=== PATIENT | female | born 1975 | race Caucasian/White ===

== ENCOUNTER 2017-01-25 18:08 | Emergency (ER) | payer OTHER ==
--- NOTE | 2017-01-25 19:43 | Emergency Department Record ---
History of Present Illness - General Chief complaint: Eye Problem Stated complaint: RT EYE INJURY Time Seen by Provider: 01/25/17 19:36 Source: Patient Mode of Arrival: Ambulatory Limitations: No limitations - History of Present Illness Initial comments: 41 yo female presents to ED with a CC of injury to the right eye when her accidentally scratched her right eye. Patient reports pain and mild blurred vision on examination. Patient denies other injury, denies health problems at her baseline. chief complaint: Eye pain Onset/Timin -: Hour(s) Onset Description: Sudden Location: Right eye Place: Home If Injury: Direct trauma Eye Symptoms: Burning, Blurry vision, Pain Severity: Mild Severity scale (1-10): 8 Consistency: Constant Associated Symptoms: None Treatments Prior to Arrival: None - Related Data Visual acuity (L) = 20/: 20 Visual acuity (R) = 20/: 40 With correction: No Hx Tetanus Toxoid Vaccination: (unknown) Patient Tetanus UTD (within 5 yrs): (unknwn) Home Medications Medication Instructions Recorded Confirmed Last Taken No Home Med [NO HOME MEDS] 08/10/15 08/10/15 Unknown Allergies Allergy/AdvReac Type Severity Reaction Status Date / Time Sulfa (Sulfonamide Allergy JOINT ACHES Verified 08/10/15 20:30 Antibiotics) Travel Screening - Travel/Exposure Within Last 30 Days Have you traveled within the last 30 days?: No - Travel/Exposure Within Last Year Have you traveled outside the [place] in the last year?: No - Additonal Travel Details Have you been exposed to anyone with a communicable illness?: No - Travel Symptoms Symptom Screening: None Review of Systems Constitutional: Denies: Chills, Fever, Malaise, Night sweats Eyes: Reports: Eye pain. Denies: Eye discharge, Photophobia ENT: Denies: Congestion, Ear pain, Epistaxis Respiratory: Denies: Cough, Dyspnea Cardiovascular: Denies: Chest pain, Dyspnea on exertion Endocrine: Denies: Fatigue, Heat or cold intolerance Gastrointestinal: Denies: Constipation, Nausea, Vomiting Genitourinary: Denies: Dysuria, Frequency, Hematuria, Incontinence Musculoskeletal: Denies: Arthralgia, Back pain, Gout, Joint swelling Skin: Denies: Bruising, Change in color Neurological: Denies: Abnormal gait, Confusion, Headache Psychiatric: Denies: Anxiety Hematological/Lymphatic: Denies: Anemia, Blood Clots Past Medical History - SOCIAL HISTORY Smoking Status: Current every day smoker Alcohol Use: None Drug Use: None - 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 history: Reports: endometriosis - RESPIRATORY Hx Respiratory Disorders: No - CARDIOVASCULAR Hx Cardio Disorders: No - NEURO Hx Neuro Disorders: No - GI Hx GI Disorders: No - Hx Genitourinary Disorders: Yes Hx Kidney Stones: Yes - ENDOCRINE Hx Endocrine Disorders: No - MUSCULOSKELETAL Hx Musculoskeletal Disorders: No - PSYCH Hx Psych Problems: Yes Hx Anxiety: Yes Hx Depression: Yes - HEMATOLOGY/ONCOLOGY Hx Hematology/Oncology Disorders: No Family Medical History Any Significant Family History?: No Physical Exam - General General Appearance: Alert, Oriented x3, Cooperative, Mild distress Limitations: No limitations - Head Head exam: Atraumatic, Normocephalic, Normal inspection Head exam detail: negative: Abrasion, Contusion, Vela's sign, General tenderness, Hematoma, Laceration - Eye Eye exam: Other (On Wood's lamp examination, patient has a small flap-abrasion with negative Alberto's sign, no FBs identified on examination). negative: Conjunctival injection, Periorbital swelling, Periorbital tenderness, Scleral icterus With correction: No - ENT Ear exam: negative: Auricular hematoma, Auricular trauma Nasal Exam: negative: Active bleeding, Discharge, Dried blood, Foreign body Mouth exam: negative: Drooling, Laceration, Muffled voice, Tongue elevation - Neck Neck exam: Normal inspection. negative: Meningismus, Tenderness - Respiratory Respiratory exam: Normal lung sounds bilaterally. negative: Respiratory distress, Rhonchi, Stridor, Wheezes - Cardiovascular Cardiovascular Exam: Regular rate, Normal rhythm, Normal heart sounds - GI/Abdominal GI/Abdominal exam: Soft. negative: Organomegaly, Rebound, Rigid, Tenderness - Rectal Rectal exam: Deferred - exam: Deferred - Extremities Extremities exam: Normal inspection. negative: Calf tenderness, Pedal edema, Tenderness - Back Back exam: Denies: CVA tenderness (R), CVA tenderness (L) - Neurological Neurological exam: Alert, Normal gait, Oriented X3 - Psychiatric Psychiatric exam: Normal affect, Normal mood - Skin Skin exam: Normal color. negative: Abrasion Type of lesion: negative: abrasion Course Vital Signs 01/25/17 19:26 Temperature 98.4 F Pulse Rate 98 H Respiratory 20 Rate Blood Pressure 150/83 Pulse Ox 97 - Reevaluation(s) Reevaluation #1: 01/25/17 19:47 On examination, patient has a small flap-like abrasion that does not leak vitreous fluid under Wood's lamp examination. [facility] reviewed, mild deficit to the vision right eye (20/40 vs 20/20 left). Will treat with Gentamycin for antibiotic prophylaxis with ophthalmologic follow-up. Disposition Disposition: Discharge Clinical Impression: Corneal abrasion Qualifiers: Encounter type: initial encounter Laterality: right Qualified Code(s): S05.01XA - Injury of conjunctiva and corneal abrasion without foreign body, right eye, initial encounter Disposition: Home, Self-Care Condition: (2) Stable Instructions: Corneal Abrasion (ED) Additional Instructions: Return to ED if your symptoms worsen or if you have any concerns. Genatmicin as directed. Follow-up with Dr. Olmedo or your eye doctor in 2-3 days. Referrals: JACLYN OLMEDO [MEDICAL DOCTOR] - Forms: Patient Portal Access Time of Disposition: 19:43
[2017-01-25] MEDS ORDERED: GENTAMICIN SULFATE 0.3% OPTH 5 ML BTL OPTH SCH (19:45)
[2017-01-25] MEDS ORDERED: HYDROCODONE/APAP 5/325MG TABLET PO ONE (20:14)
[2017-01-25] MEDS ORDERED: PROPARACAINE HCL OPTH 15ML BTL OPTH ONE (20:15)
== END 2017-01-25 20:17 | disposition home or self-care (01) ==
LOC: ER 18:08
DX: S05.01XA Injury of conjunctiva and corneal abrasion without foreign body, right eye, initial encounter (principal); W50.4XXA Accidental scratch by another person, initial encounter; Y92.009 Unspecified place in unspecified non-institutional (private) residence as the place of occurrence of the external cause
CPT/HCPCS: 99283

== ENCOUNTER 2017-01-26 12:44 | Emergency (ER) | payer OTHER ==
[2017-01-26] MEDS ORDERED: HYDROCODONE/APAP 5/325MG TABLET PO ONE (13:13)
--- NOTE | 2017-01-26 13:16 | Emergency Department Record ---
History of Present Illness - General Chief complaint: Eye Problem Stated complaint: RIGHT EYE PAIN Time Seen by Provider: 01/26/17 12:59 Source: Patient Mode of Arrival: Ambulatory Limitations: No limitations - History of Present Illness Initial comments: pt was here yesterday for trauma to her r eye from her granddaughter grabbing it yesterday. she was dxd w corneal abrasion. pt was up all night w inc pain. she called dr ponce this am and he told her to come to the er. chief complaint: Eye pain, Eye redness Onset/Timin -: Hour(s) Location: Right eye Place: Home If Injury: Direct trauma Eye Symptoms: Blurry vision, Discharge, Pain, Redness Consistency: Constant Associated Symptoms: None Treatments Prior to Arrival: None - Related Data Visual acuity (L) = 20/: 25 Visual acuity (R) = 20/: 40 Hx Tetanus Toxoid Vaccination: (unknown) Previous Rx's Medication Instructions Recorded Hydrocodone/Acetaminophen [[place] 1 tab PO Q6H PRN #10 tab 01/26/17 5mg/325mg] Allergies Allergy/AdvReac Type Severity Reaction Status Date / Time Sulfa (Sulfonamide Allergy JOINT ACHES Verified 01/26/17 12:56 Antibiotics) Travel Screening - Travel/Exposure Within Last 30 Days Have you traveled within the last 30 days?: No - Travel/Exposure Within Last Year Have you traveled outside the [place] in the last year?: No - Additonal Travel Details Have you been exposed to anyone with a communicable illness?: No - Travel Symptoms Symptom Screening: None Review of Systems Reviewed: No additional complaints except as noted below Constitutional: Reports: As per HPI. Denies: Chills, Fever, Malaise, Night sweats, Weakness, Weight change Eyes: Reports: As per HPI. Denies: Eye discharge, Eye pain, Photophobia, Vision change ENT: Reports: As per HPI. Denies: Congestion, Dental pain, Ear pain, Epistaxis , Hearing loss, Throat pain Respiratory: Reports: As per HPI. Denies: Cough, Dyspnea, Hemoptysis, Stridor, Wheezes Cardiovascular: Reports: As per HPI. Denies: Arrhythmia, Chest pain, Dyspnea on exertion, Edema, Murmurs, Orthopnea, Palpitations, Paroxysmal nocturnal dyspnea, Rheumatic Fever, Syncope Endocrine: Reports: As per HPI. Denies: Fatigue, Heat or cold intolerance, Polydipsia, Polyuria Gastrointestinal: Reports: As per HPI. Denies: Abdominal pain, Constipation, Diarrhea, Hematemesis, Hematochezia, Melena, Nausea, Vomiting Genitourinary: Reports: As per HPI. Denies: Abnormal menses, Discharge, Dyspareunia, Dysuria, Frequency, Hematuria, Incontinence, Retention, Urgency Musculoskeletal: Reports: As per HPI. Denies: Arthralgia, Back pain, Gout, Joint swelling, Myalgia, Neck pain Skin: Reports: As per HPI. Denies: Bruising, Change in color, Change in hair/ nails, Lesions, Pruritus, Rash Neurological: Reports: As per HPI. Denies: Abnormal gait, Confusion, Headache, Numbness, Paresthesias, Seizure, Tingling, Tremors, Vertigo, Weakness Psychiatric: Reports: As per HPI. Denies: Anxiety, Auditory hallucinations, Depression, Homicidal thoughts, Suicidal thoughts, Visual hallucinations Hematological/Lymphatic: Reports: As per HPI. 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 - RESPIRATORY Hx Respiratory Disorders: No - CARDIOVASCULAR Hx Cardio Disorders: No - NEURO Hx Neuro Disorders: No - GI Hx GI Disorders: No - Hx Genitourinary Disorders: Yes Hx Kidney Stones: Yes - ENDOCRINE Hx Endocrine Disorders: No - MUSCULOSKELETAL Hx Musculoskeletal Disorders: No - PSYCH Hx Psych Problems: Yes Hx Anxiety: Yes Hx Depression: Yes - HEMATOLOGY/ONCOLOGY Hx Hematology/Oncology Disorders: No Family Medical History Any Significant Family History?: No Physical Exam - General General Appearance: Alert, Oriented x3, Cooperative, Mild distress - Head Head exam: Normal inspection - Eye Eye exam: Normal appearance, PERRL, Conjunctival injection, EOMI, Periorbital swelling Pupils: Normal accommodation Image of Eyes: 1 - corneal abrasion - ENT ENT exam: Normal exam, Mucous membranes moist, Normal external ear exam, Normal orophraynx Ear exam: Normal external inspection. negative: External canal tenderness Nasal Exam: Normal inspection. negative: Discharge, Sinus tenderness Mouth exam: Normal external inspection, Tongue normal Teeth exam: Normal inspection. negative: Dental caries Throat exam: Normal inspection. negative: Tonsillar erythema, Tonsillar exudate - Neck Neck exam: Normal inspection, Full ROM. negative: Tenderness - Respiratory Respiratory exam: Normal lung sounds bilaterally. negative: Respiratory distress - Cardiovascular Cardiovascular Exam: Normal rhythm, Normal heart sounds, Tachycardia - GI/Abdominal GI/Abdominal exam: Soft, Normal bowel sounds. negative: Tenderness - Rectal Rectal exam: Deferred - exam: Deferred - Extremities Extremities exam: Normal inspection, Full ROM, Normal capillary refill. negative: Tenderness - Back Back exam: Reports: Normal inspection, Full ROM. Denies: Muscle spasm, Rash noted, Tenderness - Neurological Neurological exam: Alert, CN II-XII intact, Normal gait, Oriented X3 - Psychiatric Psychiatric exam: Normal affect, Normal mood - Skin Skin exam: Dry, Intact, Normal color, Warm Course Vital Signs 01/26/17 12:47 Temperature 98.4 F Pulse Rate 110 H Respiratory 16 Rate Blood Pressure 131/84 Pulse Ox 100 Disposition Disposition: Discharge Clinical Impression: Corneal abrasion Qualifiers: Encounter type: initial encounter Laterality: right Qualified Code(s): S05.01XA - Injury of conjunctiva and corneal abrasion without foreign body, right eye, initial encounter Disposition: Home, Self-Care Condition: (1) Good Instructions: Corneal Abrasion (ED) Additional Instructions: follow up with dr ponce on saturday. return sooner if worse. continue drops. Prescriptions: Hydrocodone/Acetaminophen [[place] 5mg/325mg] 1 tab PO Q6H PRN #10 tab PRN Reason: Pain - General Forms: Patient Portal Access
[2017-01-26] MEDS ORDERED: PROPARACAINE HCL OPTH 15ML BTL OPTH ONE (14:14)
--- NOTE | 2017-01-26 14:40 | Emergency Department Record ---
History of Present Illness - General Chief complaint: Eye Problem Stated complaint: RIGHT EYE PAIN Time Seen by Provider: 01/26/17 12:59 Source: Patient Mode of Arrival: Ambulatory Limitations: No limitations - History of Present Illness chief complaint: Eye pain, Eye redness Onset/Timin -: Hour(s) Location: Right eye Place: Home If Injury: Direct trauma Eye Symptoms: Blurry vision, Discharge, Pain, Redness Consistency: Constant Associated Symptoms: None Treatments Prior to Arrival: None - Related Data Visual acuity (L) = 20/: 25 Visual acuity (R) = 20/: 40 With correction: No Hx Tetanus Toxoid Vaccination: (unknown) Previous Rx's Medication Instructions Recorded Erythromycin Base [Erythromycin 1 apply AFFEYE BID #1 tube 01/26/17 OPTH Ointment] Hydrocodone/Acetaminophen [[place] 1 tab PO Q6H PRN #10 tab 01/26/17 5mg/325mg] Allergies Allergy/AdvReac Type Severity Reaction Status Date / Time Sulfa (Sulfonamide Allergy JOINT ACHES Verified 01/26/17 12:56 Antibiotics) Travel Screening - Travel/Exposure Within Last 30 Days Have you traveled within the last 30 days?: No - Travel/Exposure Within Last Year Have you traveled outside the [place] in the last year?: No - Additonal Travel Details Have you been exposed to anyone with a communicable illness?: No - Travel Symptoms Symptom Screening: None Review of Systems Constitutional: Reports: As per HPI. Denies: Chills, Fever, Malaise, Night sweats, Weakness, Weight change Eyes: Reports: As per HPI. Denies: Eye discharge, Eye pain, Photophobia, Vision change ENT: Reports: As per HPI. Denies: Congestion, Dental pain, Ear pain, Epistaxis , Hearing loss, Throat pain Respiratory: Reports: As per HPI. Denies: Cough, Dyspnea, Hemoptysis, Stridor, Wheezes Cardiovascular: Reports: As per HPI. Denies: Arrhythmia, Chest pain, Dyspnea on exertion, Edema, Murmurs, Orthopnea, Palpitations, Paroxysmal nocturnal dyspnea, Rheumatic Fever, Syncope Endocrine: Reports: As per HPI. Denies: Fatigue, Heat or cold intolerance, Polydipsia, Polyuria Gastrointestinal: Reports: As per HPI. Denies: Abdominal pain, Constipation, Diarrhea, Hematemesis, Hematochezia, Melena, Nausea, Vomiting Genitourinary: Reports: As per HPI. Denies: Abnormal menses, Discharge, Dyspareunia, Dysuria, Frequency, Hematuria, Incontinence, Retention, Urgency Musculoskeletal: Reports: As per HPI. Denies: Arthralgia, Back pain, Gout, Joint swelling, Myalgia, Neck pain Skin: Reports: As per HPI. Denies: Bruising, Change in color, Change in hair/ nails, Lesions, Pruritus, Rash Neurological: Reports: As per HPI. Denies: Abnormal gait, Confusion, Headache, Numbness, Paresthesias, Seizure, Tingling, Tremors, Vertigo, Weakness Psychiatric: Reports: As per HPI. Denies: Anxiety, Auditory hallucinations, Depression, Homicidal thoughts, Suicidal thoughts, Visual hallucinations Hematological/Lymphatic: Reports: As per HPI. 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 - RESPIRATORY Hx Respiratory Disorders: No - CARDIOVASCULAR Hx Cardio Disorders: No - NEURO Hx Neuro Disorders: No - GI Hx GI Disorders: No - Hx Genitourinary Disorders: Yes Hx Kidney Stones: Yes - ENDOCRINE Hx Endocrine Disorders: No - MUSCULOSKELETAL Hx Musculoskeletal Disorders: No - PSYCH Hx Psych Problems: Yes Hx Anxiety: Yes Hx Depression: Yes - HEMATOLOGY/ONCOLOGY Hx Hematology/Oncology Disorders: No Family Medical History Any Significant Family History?: No Physical Exam - General Limitations: No limitations - Eye With correction: No Course Vital Signs 01/26/17 12:47 Temperature 98.4 F Pulse Rate 110 H Respiratory 16 Rate Blood Pressure 131/84 Pulse Ox 100 - Reevaluation(s) Reevaluation #1: 01/26/17 14:39 pt was switched to erythromycin ointment since she could possibly be having some rxn to the gent Disposition Clinical Impression: Corneal abrasion Qualifiers: Encounter type: initial encounter Laterality: right Qualified Code(s): S05.01XA - Injury of conjunctiva and corneal abrasion without foreign body, right eye, initial encounter Disposition: Home, Self-Care Condition: (1) Good Instructions: Corneal Abrasion (ED) Additional Instructions: follow up with dr ponce on saturday. return sooner if worse. continue drops. Prescriptions: Erythromycin Base [Erythromycin OPTH Ointment] 1 apply AFFEYE BID #1 tube Hydrocodone/Acetaminophen [[place] 5mg/325mg] 1 tab PO Q6H PRN #10 tab PRN Reason: Pain - General Forms: Patient Portal Access
--- NOTE | 2017-01-26 14:42 | Emergency Department Record ---
History of Present Illness - General Chief complaint: Eye Problem Stated complaint: RIGHT EYE PAIN Time Seen by Provider: 01/26/17 12:59 Source: Patient Mode of Arrival: Ambulatory Limitations: No limitations - History of Present Illness chief complaint: Eye pain, Eye redness Onset/Timin -: Hour(s) Location: Right eye Place: Home If Injury: Direct trauma Eye Symptoms: Blurry vision, Discharge, Pain, Redness Consistency: Constant Associated Symptoms: None Treatments Prior to Arrival: None - Related Data Visual acuity (L) = 20/: 25 Visual acuity (R) = 20/: 40 With correction: No Hx Tetanus Toxoid Vaccination: (unknown) Previous Rx's Medication Instructions Recorded Erythromycin Base [Erythromycin 1 apply AFFEYE BID #1 tube 01/26/17 OPTH Ointment] Hydrocodone/Acetaminophen [[place] 1 tab PO Q6H PRN #10 tab 01/26/17 5mg/325mg] Allergies Allergy/AdvReac Type Severity Reaction Status Date / Time Sulfa (Sulfonamide Allergy JOINT ACHES Verified 01/26/17 12:56 Antibiotics) Travel Screening - Travel/Exposure Within Last 30 Days Have you traveled within the last 30 days?: No - Travel/Exposure Within Last Year Have you traveled outside the [place] in the last year?: No - Additonal Travel Details Have you been exposed to anyone with a communicable illness?: No - Travel Symptoms Symptom Screening: None Review of Systems Constitutional: Reports: As per HPI. Denies: Chills, Fever, Malaise, Night sweats, Weakness, Weight change Eyes: Reports: As per HPI. Denies: Eye discharge, Eye pain, Photophobia, Vision change ENT: Reports: As per HPI. Denies: Congestion, Dental pain, Ear pain, Epistaxis , Hearing loss, Throat pain Respiratory: Reports: As per HPI. Denies: Cough, Dyspnea, Hemoptysis, Stridor, Wheezes Cardiovascular: Reports: As per HPI. Denies: Arrhythmia, Chest pain, Dyspnea on exertion, Edema, Murmurs, Orthopnea, Palpitations, Paroxysmal nocturnal dyspnea, Rheumatic Fever, Syncope Endocrine: Reports: As per HPI. Denies: Fatigue, Heat or cold intolerance, Polydipsia, Polyuria Gastrointestinal: Reports: As per HPI. Denies: Abdominal pain, Constipation, Diarrhea, Hematemesis, Hematochezia, Melena, Nausea, Vomiting Genitourinary: Reports: As per HPI. Denies: Abnormal menses, Discharge, Dyspareunia, Dysuria, Frequency, Hematuria, Incontinence, Retention, Urgency Musculoskeletal: Reports: As per HPI. Denies: Arthralgia, Back pain, Gout, Joint swelling, Myalgia, Neck pain Skin: Reports: As per HPI. Denies: Bruising, Change in color, Change in hair/ nails, Lesions, Pruritus, Rash Neurological: Reports: As per HPI. Denies: Abnormal gait, Confusion, Headache, Numbness, Paresthesias, Seizure, Tingling, Tremors, Vertigo, Weakness Psychiatric: Reports: As per HPI. Denies: Anxiety, Auditory hallucinations, Depression, Homicidal thoughts, Suicidal thoughts, Visual hallucinations Hematological/Lymphatic: Reports: As per HPI. 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 - RESPIRATORY Hx Respiratory Disorders: No - CARDIOVASCULAR Hx Cardio Disorders: No - NEURO Hx Neuro Disorders: No - GI Hx GI Disorders: No - Hx Genitourinary Disorders: Yes Hx Kidney Stones: Yes - ENDOCRINE Hx Endocrine Disorders: No - MUSCULOSKELETAL Hx Musculoskeletal Disorders: No - PSYCH Hx Psych Problems: Yes Hx Anxiety: Yes Hx Depression: Yes - HEMATOLOGY/ONCOLOGY Hx Hematology/Oncology Disorders: No Family Medical History Any Significant Family History?: No Physical Exam - General Limitations: No limitations - Eye With correction: No Course Vital Signs 01/26/17 12:47 Temperature 98.4 F Pulse Rate 110 H Respiratory 16 Rate Blood Pressure 131/84 Pulse Ox 100 - Reevaluation(s) Reevaluation #1: 01/26/17 14:[address] ponce since he had sent pt in and he was who she was to see in f/u Disposition Clinical Impression: Corneal abrasion Qualifiers: Encounter type: initial encounter Laterality: right Qualified Code(s): S05.01XA - Injury of conjunctiva and corneal abrasion without foreign body, right eye, initial encounter Disposition: Home, Self-Care Condition: (1) Good Instructions: Corneal Abrasion (ED) Additional Instructions: follow up with dr ponce on saturday. return sooner if worse. continue drops. Prescriptions: Erythromycin Base [Erythromycin OPTH Ointment] 1 apply AFFEYE BID #1 tube Hydrocodone/Acetaminophen [[place] 5mg/325mg] 1 tab PO Q6H PRN #10 tab PRN Reason: Pain - General Forms: Patient Portal Access
== END 2017-01-26 14:49 | disposition home or self-care (01) ==
LOC: ER 12:44
DX: S05.01XA Injury of conjunctiva and corneal abrasion without foreign body, right eye, initial encounter (principal); H53.8 Other visual disturbances; W50.4XXA Accidental scratch by another person, initial encounter
CPT/HCPCS: 70480; 99283; 99284

== ENCOUNTER 2017-10-26 20:52 | Emergency (ER) | payer BC, OTHER ==
--- NOTE | 2017-10-26 21:13 | Emergency Department Record ---
History of Present Illness - General Chief complaint: Dental Stated complaint: DENTAL PAIN Time Seen by Provider: 10/26/17 21:09 Source: Patient Mode of Arrival: Ambulatory Limitations: No limitations - History of Present Illness Initial comments: 41 yo female presents to ED for right sided facial swelling that began this morning, recent worsened right upper dental pain symptoms for 2-3 days. Patient denies fevers/chills or recent trauma, reports that she was planning on having the remainder of her teeth pulled next week. Patient began taking PCN yesterday that she had at home, however her symptoms worsened. Patient denies health problems at her baseline. MD complaint: Tooth pain Onset/Timin -: Days(s) Location: R ear Severity: Moderate, Severe Severity scale (1-10): 9 Quality: Aching Consistency: Constant, Getting worse Improves with: None Worsens with: Eating Context- Dental: History of dental caries Associated Symptoms: Pain with swallowing, Toothache - Related Data Home Medications Medication Instructions Recorded Confirmed Last Taken Docusate Sodium [Colace] 100 mg PO DAILY 10/26/17 10/26/17 10/26/17 Penicillin V Potassium 500 mg PO QID 10/26/17 10/26/17 10/26/17 Previous Rx's Medication Instructions Recorded Hydrocodone/Acetaminophen [[place] 1 tab PO Q6H PRN #10 tab 01/26/17 5mg/325mg] Clindamycin HCl [Cleocin HCl] 300 mg PO QID #27 capsule 10/26/17 Allergies Allergy/AdvReac Type Severity Reaction Status Date / Time Sulfa (Sulfonamide Allergy JOINT ACHES Verified 01/26/17 12:56 Antibiotics) Travel Screening - Travel/Exposure Within Last 30 Days Have you traveled within the last 30 days?: No Review of Systems Constitutional: Denies: Chills, Fever, Malaise, Night sweats Eyes: Denies: Eye discharge, Eye pain ENT: Reports: Other (facial swelling). Denies: Congestion, Ear pain, Epistaxis Respiratory: Denies: Cough, Dyspnea Cardiovascular: Denies: Chest pain, Dyspnea on exertion Endocrine: Denies: Fatigue, Heat or cold intolerance Gastrointestinal: Denies: Abdominal pain, Nausea, Vomiting Genitourinary: Denies: Incontinence, Retention Musculoskeletal: Denies: Arthralgia, Back pain, Gout, Joint swelling Skin: Denies: Bruising, Change in color Neurological: Denies: Abnormal gait, Confusion, Headache, Seizure Psychiatric: Denies: Anxiety Hematological/Lymphatic: Denies: Anemia, Blood Clots Past Medical History - SOCIAL HISTORY Smoking Status: Current every day smoker Alcohol Use: None Drug Use: None - 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 history: Reports: endometriosis - RESPIRATORY Hx Respiratory Disorders: No - CARDIOVASCULAR Hx Cardio Disorders: No - NEURO Hx Neuro Disorders: No - GI Hx GI Disorders: No - Hx Genitourinary Disorders: Yes Hx Kidney Stones: Yes - ENDOCRINE Hx Endocrine Disorders: No - MUSCULOSKELETAL Hx Musculoskeletal Disorders: No - PSYCH Hx Psych Problems: Yes Hx Anxiety: Yes Hx Depression: Yes - HEMATOLOGY/ONCOLOGY Hx Hematology/Oncology Disorders: No Family Medical History Any Significant Family History?: No Physical Exam - General General Appearance: Alert, Oriented x3, Cooperative, Mild distress Limitations: No limitations - Head Head exam: Atraumatic, Normocephalic, Other (Right sided facial swelling to the maxillary region, no induration or abscess present, findings are c/w STS from dental abscess) Head exam detail: negative: Abrasion, Contusion, Vela's sign, General tenderness, Hematoma, Laceration - Eye Eye exam: Normal appearance. negative: Conjunctival injection, Periorbital swelling, Periorbital tenderness, Scleral icterus - ENT Ear exam: negative: Auricular hematoma, Auricular trauma Nasal Exam: negative: Active bleeding, Discharge, Dried blood, Foreign body Mouth exam: negative: Drooling, Laceration, Muffled voice, Tongue elevation Teeth exam: Dental caries, Dental tenderness # Throat exam: negative: Tonsillar erythema, Tonsillomegaly, R peritonsillar mass , L peritonsillar mass Image of Mouth/Teeth: 1 - TTP, diffuse dental caries present - Neck Neck exam: Normal inspection. negative: Meningismus, Tenderness - Respiratory Respiratory exam: Normal lung sounds bilaterally. negative: Rales, Respiratory distress, Rhonchi, Stridor - Cardiovascular Cardiovascular Exam: Normal rhythm, Normal heart sounds, Tachycardia - GI/Abdominal GI/Abdominal exam: Soft. negative: Rebound, Rigid, Tenderness - Rectal Rectal exam: Deferred - exam: Deferred - Extremities Extremities exam: Normal inspection. negative: Pedal edema, Tenderness - Back Back exam: Denies: CVA tenderness (R), CVA tenderness (L) - Neurological Neurological exam: Alert, Normal gait, Oriented X3 - Psychiatric Psychiatric exam: Normal affect, Normal mood - Skin Skin exam: Normal color. negative: Abrasion Type of lesion: negative: abrasion Course Vital Signs 10/26/17 20:55 Temperature 99.6 F Pulse Rate 127 H Respiratory 20 Rate Blood Pressure 134/84 Pulse Ox 100 Disposition Disposition: Discharge Clinical Impression: Dental abscess Disposition: Home, Self-Care Condition: (2) Stable Instructions: Dental Abscess (ED) Additional Instructions: Return to ED if your symptoms worsen or if you have any concerns. Clindamycin as directed. Follow-up with a dentist in 3-5 days as directed. Prescriptions: Clindamycin HCl [Cleocin HCl] 300 mg PO QID #27 capsule Forms: Patient Portal Access Time of Disposition: 21:12 Quality - Quality Measures Quality Measures: N/A - Blood Pressure Screening Does Patient Have Any of the Following: No Blood Pressure Classification: Pre-Hypertensive BP Reading Systolic Measurement: 134 Diastolic Measurement: 84 Screening for High Blood Pressure: < Pre-Hypertensive BP, F/U Documented > [ G8950] Pre-Hypertensive Follow-up Interventions: Referral to alternative/primary care provider.
[2017-10-26] MEDS ORDERED: CLINDAMYCIN 150 MG CAP PO SCH (21:15)
[2017-10-26] MEDS ORDERED: CLINDAMYCIN 150 MG CAP PO ONE (21:26)
== END 2017-10-26 21:35 | disposition home or self-care (01) ==
LOC: ER 20:52
DX: K04.7 Periapical abscess without sinus (principal); F17.210 Nicotine dependence, cigarettes, uncomplicated
CPT/HCPCS: 99282

== ENCOUNTER 2018-06-18 15:45 | Emergency (ER) | payer BC, MEDICAID ==
--- NOTE | 2018-06-18 16:01 | Emergency Department Record ---
History of Present Illness - General Chief complaint: Lower Extremity Pain Stated complaint: LT LEG PAIN Time Seen by Provider: 06/18/18 15:56 Source: Patient Mode of Arrival: Ambulatory Limitations: No limitations - History of Present Illness Initial comments: The patient is here due to L lower leg pain for the last 4-5 days. She did have a baby 7 days ago and started having pain after. The pain is worse with walking and bending. She denies any trauma, injury or fevers. The patient states she has no hx of blood clots in the past. She also denies any visual changes, leg swelling, or new onset headaches. MD Complaint: Extremity pain Onset/Timin -: Days(s) Location: Left, Lower Leg History of Same: No Worsens with: Walking Associated Symptoms: Denies other symptoms - Related Data Home Medications Medication Instructions Recorded Confirmed Last Taken Vit 108/Iron/Folic AC 1 each PO DAILY 06/18/18 06/18/18 Unknown [ One Tablet] Previous Rx's Medication Instructions Recorded Hydrocodone/Acetaminophen [Alpha 1 each PO QID #10 tablet 06/18/18 5-325 Tablet] Allergies Allergy/AdvReac Type Severity Reaction Status Date / Time Sulfa (Sulfonamide Allergy JOINT ACHES Verified 06/18/18 15:55 Antibiotics) NSAIDS (Non-Steroidal AdvReac stomach Verified 06/18/18 15:55 Anti-Inflamma aches Travel Screening - Travel/Exposure Within Last 30 Days Have you traveled within the last 30 days?: No Review of Systems Constitutional: Denies: Chills, Fever Eyes: Denies: Eye discharge ENT: Denies: Congestion Respiratory: Denies: Cough Past Medical History - SOCIAL HISTORY Smoking Status: Current every day smoker Alcohol Use: None Drug Use: None - 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 - RESPIRATORY Hx Respiratory Disorders: No - CARDIOVASCULAR Hx Cardio Disorders: No - NEURO Hx Neuro Disorders: No - GI Hx GI Disorders: No - Hx Genitourinary Disorders: Yes Hx Kidney Stones: Yes - ENDOCRINE Hx Endocrine Disorders: No - MUSCULOSKELETAL Hx Musculoskeletal Disorders: No - PSYCH Hx Psych Problems: Yes Hx Anxiety: Yes Hx Depression: Yes - HEMATOLOGY/ONCOLOGY Hx Hematology/Oncology Disorders: No Family Medical History Any Significant Family History?: Yes Physical Exam - General General Appearance: Alert, Oriented x3, Cooperative, No acute distress - Head Head exam: Atraumatic, Normocephalic, Normal inspection - Eye Eye exam: Normal appearance, PERRL - Neck Neck exam: Normal inspection, Full ROM. negative: Tenderness - Respiratory Respiratory exam: Normal lung sounds bilaterally. negative: Respiratory distress - Cardiovascular Cardiovascular Exam: Regular rate, Normal rhythm, Normal heart sounds - Extremities Extremities exam: Normal inspection, Full ROM, Normal capillary refill, Tenderness (There is mild tenderness behind the L knee but no L leg swelling or edema.), Other (The L lower extremity is NVI with normal pulses.). negative: Calf tenderness, Joint swelling Course Vital Signs 06/18/18 15:50 Temperature 97.8 F Pulse Rate 113 H Respiratory 18 Rate Blood Pressure 142/90 Pulse Ox 97 - Reevaluation(s) Reevaluation #1: The patient is doing slightly better at this time. Her repeat BP is 138/86 and she only has trace protein in her urine. The patient's BP was elevated prior to her delivery also and actually was higher than it is now. There also is no leg edema. 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 She also does not believe the patient is Pre-eclamptic and would like the patient to come into the office on Saturday for a BP check. 06/18/18 18:20 Medical Decision Making - Data Complexity MDM Data: Labs Ordered and/or Reviewed, X-Ray Ordered and/or Reviewed - Radiology Data Radiology results: Report reviewed (L leg Doppler: Neg for DVT. Pos Mirza's cyst.) Disposition Disposition: Discharge Clinical Impression: Mirza's cyst Qualifiers: Laterality: left Qualified Code(s): M71.22 - Synovial cyst of popliteal space [ Mirza], left knee Disposition: Home, Self-Care Condition: (2) Stable Instructions: Bakers Cyst (ED) Additional Instructions: Please take the Alpha for pain and please see your family doctor later this week for recheck. Please also go to your OB doctors office on or Saturday for a blood pressure check. Return to the ER for any worsening issues, pain, MAE, CP or visual changes. Prescriptions: Hydrocodone/Acetaminophen [Alpha 5-325 Tablet] 1 each PO QID #10 tablet Forms: Patient Portal Access Time of Disposition: 18:29 Quality - Quality Measures Quality Measures: N/A - Blood Pressure Screening View Details: Yes Does Patient Have Any of the Following: No Blood Pressure Classification: Hypertensive Reading Systolic Measurement: 142 Diastolic Measurement: 90 Screening for High Blood Pressure: < First Hypertensive BP, F/U Documented > [ G8950] First Hypertensive Follow-up Interventions: Referral to alternative/primary care provider.
[2018-06-18] MEDS ORDERED: ACETAMINOPHEN 325 MG TAB PO ONE (17:35)
[2018-06-18] MEDS ORDERED: HYDROCODONE/APAP 5/325MG TABLET PO ONE ×2 (17:38→17:40)
[2018-06-18 18:04] LABS: URINE APPEARANCE CLEAR; URINE BILIRUBIN NEGATIVE (NEGATIVE); URINE BLOOD LARGE (NEGATIVE); URINE COLOR YELLOW; URINE GLUCOSE (UA) NEGATIVE (NEGATIVE); URINE KETONE NEGATIVE (NEGATIVE); URINE LEUKOCYTE ESTERASE NEGATIVE (NEGATIVE); URINE NITRITE NEGATIVE (NEGATIVE); URINE PROTEIN TRACE (NEGATIVE); URINE UROBILINOGEN 0.2 E.U./dL (0.20 - 1.00)
[2018-06-18 18:24] LABS: URINE BACTERIA NONE SEEN; URINE EPITHELIAL CELLS 0 - 2 (FEW); URINE WBC NONE SEEN (0-2/hpf)
== END 2018-06-18 18:40 | disposition home or self-care (01) ==
LOC: ER 15:45
DX: O90.89 Other complications of the puerperium, not elsewhere classified (principal); M71.22 Synovial cyst of popliteal space [Baker], left knee; O99.335 Smoking (tobacco) complicating the puerperium; F17.210 Nicotine dependence, cigarettes, uncomplicated
CPT/HCPCS: 81001; 99283

== ENCOUNTER 2018-09-02 17:21 | Emergency (ER) | payer BC, MEDICAID ==
--- NOTE | 2018-09-02 18:06 | Emergency Department Record ---
History of Present Illness - General Chief complaint: Dental Stated complaint: ABCESS TOOTH Time Seen by Provider: 09/02/18 17:55 Source: Patient Mode of Arrival: Ambulatory Limitations: No limitations - History of Present Illness Initial comments: pt has a developing dental abscess. she has had many in the past. she is scheduled to get dentures in september. complaint: Tooth pain Onset/Timin -: Days(s) Severity: Severe Severity scale (1-10): 10 Quality: Sharp Consistency: Constant Improves with: None Worsens with: None Context- Dental: History of dental caries, Poor dental care Associated Symptoms: Toothache - Related Data Previous Rx's Medication Instructions Recorded Amoxicillin/Potassium Clav 1 each PO BID #20 tablet 09/02/18 [Augmentin 875Mg/125Mg] Allergies Allergy/AdvReac Type Severity Reaction Status Date / Time Sulfa (Sulfonamide Allergy JOINT ACHES Unverified 08/14/18 14:34 Antibiotics) NSAIDS (Non-Steroidal AdvReac stomach Unverified 08/14/18 14:34 Anti-Inflamma aches Travel Screening - Travel/Exposure Within Last 30 Days Have you traveled within the last 30 days?: No Review of Systems Reviewed: No additional complaints except as noted below Constitutional: Reports: As per HPI. Denies: Chills, Fever, Malaise, Night sweats, Weakness, Weight change Eyes: Reports: As per HPI. Denies: Eye discharge, Eye pain, Photophobia, Vision change ENT: Reports: As per HPI, Dental pain. Denies: Congestion, Ear pain, Epistaxis , Hearing loss, Throat pain Respiratory: Reports: As per HPI. Denies: Cough, Dyspnea, Hemoptysis, Stridor, Wheezes Cardiovascular: Reports: As per HPI. Denies: Arrhythmia, Chest pain, Dyspnea on exertion, Edema, Murmurs, Orthopnea, Palpitations, Paroxysmal nocturnal dyspnea, Rheumatic Fever, Syncope Endocrine: Reports: As per HPI. Denies: Fatigue, Heat or cold intolerance, Polydipsia, Polyuria Gastrointestinal: Reports: As per HPI. Denies: Abdominal pain, Constipation, Diarrhea, Hematemesis, Hematochezia, Melena, Nausea, Vomiting Genitourinary: Reports: As per HPI. Denies: Abnormal menses, Discharge, Dyspareunia, Dysuria, Frequency, Hematuria, Incontinence, Retention, Urgency Musculoskeletal: Reports: As per HPI. Denies: Arthralgia, Back pain, Gout, Joint swelling, Myalgia, Neck pain Skin: Reports: As per HPI. Denies: Bruising, Change in color, Change in hair/ nails, Lesions, Pruritus, Rash Neurological: Reports: As per HPI. Denies: Abnormal gait, Confusion, Headache, Numbness, Paresthesias, Seizure, Tingling, Tremors, Vertigo, Weakness Psychiatric: Reports: As per HPI. Denies: Anxiety, Auditory hallucinations, Depression, Homicidal thoughts, Suicidal thoughts, Visual hallucinations Hematological/Lymphatic: Reports: As per HPI. 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 - RESPIRATORY Hx Respiratory Disorders: No - CARDIOVASCULAR Hx Cardio Disorders: No - NEURO Hx Neuro Disorders: No - GI Hx GI Disorders: No - Hx Genitourinary Disorders: Yes Hx Kidney Stones: Yes - ENDOCRINE Hx Endocrine Disorders: No - MUSCULOSKELETAL Hx Musculoskeletal Disorders: No - PSYCH Hx Psych Problems: Yes Hx Anxiety: Yes Hx Depression: Yes - HEMATOLOGY/ONCOLOGY Hx Hematology/Oncology Disorders: No Family Medical History Any Significant Family History?: No Physical Exam - General General Appearance: Alert, Oriented x3, Cooperative, Mild distress - Head Head exam: Normal inspection - Eye Eye exam: Normal appearance, PERRL, EOMI Pupils: Normal accommodation - ENT ENT exam: Normal exam, Mucous membranes moist, Normal external ear exam, Normal orophraynx Ear exam: Normal external inspection. negative: External canal tenderness Nasal Exam: Normal inspection. negative: Discharge, Sinus tenderness Mouth exam: Normal external inspection, Tongue normal, Other (dlight facial swelling l upper jaw) Teeth exam: Dental caries, Dental tenderness #, Gingival enlargement Throat exam: Normal inspection. negative: Tonsillar erythema, Tonsillar exudate - Neck Neck exam: Normal inspection, Full ROM. negative: Tenderness - Respiratory Respiratory exam: Normal lung sounds bilaterally. negative: Respiratory distress - Cardiovascular Cardiovascular Exam: Regular rate, Normal rhythm, Normal heart sounds - GI/Abdominal GI/Abdominal exam: Soft, Normal bowel sounds. negative: Tenderness - Rectal Rectal exam: Deferred - exam: Deferred - Extremities Extremities exam: Normal inspection, Full ROM, Normal capillary refill. negative: Tenderness - Back Back exam: Reports: Normal inspection, Full ROM. Denies: Muscle spasm, Rash noted, Tenderness - Neurological Neurological exam: Alert, Normal gait, Oriented X3, Reflexes normal - Psychiatric Psychiatric exam: Normal affect, Normal mood - Skin Skin exam: Dry, Intact, Normal color, Warm Course Vital Signs 09/02/18 17:47 Temperature 98.7 F Pulse Rate 107 H Respiratory 18 Rate Blood Pressure 124/76 Pulse Ox 98 Disposition Disposition: Discharge Clinical Impression: Dental abscess Disposition: Home, Self-Care Condition: (1) Good Instructions: Dental Abscess (ED) Additional Instructions: follow up with dentist judd. return sooner if worse. sleep elevated. rinse mouth frequently. warm moist cloths to cheek Prescriptions: Amoxicillin/Potassium Clav [Augmentin 875Mg/125Mg] 1 each PO BID #20 tablet Quality - Quality Measures Quality Measures: N/A - Blood Pressure Screening Does Patient Have Any of the Following: No Blood Pressure Classification: Pre-Hypertensive BP Reading Systolic Measurement: 124 Diastolic Measurement: 76 Screening for High Blood Pressure: < Pre-Hypertensive BP, F/U Documented > [ G8950] Pre-Hypertensive Follow-up Interventions: Follow-up with rescreen every year.
== END 2018-09-02 18:16 | disposition home or self-care (01) ==
LOC: ER 17:21
DX: K04.7 Periapical abscess without sinus (principal); F17.210 Nicotine dependence, cigarettes, uncomplicated
CPT/HCPCS: 99282

== ENCOUNTER 2019-07-12 15:30 | Emergency (ER) | payer BC ==
[2019-07-12] MEDS ORDERED: ACETAMINOPHEN 325 MG TAB PO ONE (15:39)
[2019-07-12] MEDS ORDERED: CLINDAMYCIN 150 MG CAP PO ONE (15:39)
--- NOTE | 2019-07-12 15:48 | Emergency Department Record ---
History of Present Illness - General Chief complaint: Dental Stated complaint: ABCESS TOOTH Time Seen by Provider: 07/12/19 15:34 Source: Patient Mode of Arrival: Ambulatory Limitations: No limitations - History of Present Illness Initial comments: The patient is here due to dental pain and swelling for one day. She has a long hx of dental issues due to poor dentition and has had similar infections in the past. She has mild swelling to the R maxillary area and is having significant R upper dental pain. She denies any SOB, NOMAN, voice changes or pain with swallowing. MD complaint: Tooth pain Onset/Timin -: Days(s) Severity: Severe Severity scale (1-10): 10 Quality: Aching Consistency: Constant Improves with: None Worsens with: None - Related Data Previous Rx's Medication Instructions Recorded Clindamycin HCl [Cleocin HCl] 300 mg PO QID #28 capsule 07/12/19 Naproxen [Naprosyn] 250 mg PO BID #14 tablet 07/12/19 Allergies Allergy/AdvReac Type Severity Reaction Status Date / Time Sulfa (Sulfonamide Allergy JOINT ACHES Verified 07/12/19 15:37 Antibiotics) NSAIDS (Non-Steroidal AdvReac stomach Verified 07/12/19 15:37 Anti-Inflamma aches Travel Screening - Travel/Exposure Within Last 30 Days Have you traveled within the last 30 days?: No Review of Systems Constitutional: Reports: Malaise. 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 - RESPIRATORY Hx Respiratory Disorders: No - CARDIOVASCULAR Hx Cardio Disorders: No - NEURO Hx Neuro Disorders: No - GI Hx GI Disorders: No - Hx Genitourinary Disorders: Yes Hx Kidney Stones: Yes - ENDOCRINE Hx Endocrine Disorders: No - MUSCULOSKELETAL Hx Musculoskeletal Disorders: No - PSYCH Hx Psych Problems: Yes Hx Anxiety: Yes Hx Depression: Yes - HEMATOLOGY/ONCOLOGY Hx Hematology/Oncology Disorders: No Family Medical History Any Significant Family History?: No Physical Exam - General General Appearance: Alert, Oriented x3, Cooperative, No acute distress - Head Head exam: Atraumatic, Normocephalic, Normal inspection Image of Face/Head: 1 - Area of pain and swelling and tenderness. - Eye Eye exam: Normal appearance, PERRL, EOMI. negative: Conjunctival injection - ENT ENT exam: negative: Normal exam (There is mild swelling in the R maxillary area.) Mouth exam: Normal external inspection, Tongue normal. negative: Drooling, Muffled voice, Tongue elevation, Trismus Teeth exam: Dental caries (There is widespread severe dental decay and poor dentition. She is having pain over the gum line of the R upper molar area.). negative: Normal inspection Throat exam: Normal inspection. negative: Tonsillar erythema, Tonsillomegaly, Tonsillar exudate, R peritonsillar mass, L peritonsillar mass - Neck Neck exam: Normal inspection, Full ROM. negative: Lymphadenopathy, Meningismus, Tenderness - Respiratory Respiratory exam: Normal lung sounds bilaterally. negative: Respiratory distre ss - Cardiovascular Cardiovascular Exam: Regular rate, Normal rhythm, Normal heart sounds Course Vital Signs 07/12/19 15:35 Temperature 99.5 F Pulse Rate [ 121 H Pulse Ox Probe] Respiratory 18 Rate Blood Pressure 160/91 [Left Arm] Pulse Ox 98 - Reevaluation(s) Reevaluation #1: On recheck the patient still does have a low grade fever with a fast heart rate. Because of that I did recommend placing an IV and ordering lab work and IV Abx's and fluids. I also stated she may need to be admitted to the hospital. The patient is refusing that plan. I did explain that an infection in this area can get much worse and lead to a life threatening infection and even an airway compromise issue but the patient is still refusing that plan. I then did explain that by NOT having those things done she could go home and have sepsis, a stroke, become disabled and even . The patient understands and accepts the risks. She promises to return for any worsening symptoms. 07/12/19 16:34 Disposition Disposition: Discharge Clinical Impression: Dental infection Disposition: Home, Self-Care Condition: (2) Stable Instructions: Dental Abscess (ED) Additional Instructions: Please continue the Clindamycin and use Tylenol and Naprosyn for pain. Please see your dentist LYDIA. Return to the ER for any worsening symptoms. Prescriptions: Clindamycin HCl [Cleocin HCl] 300 mg PO QID #28 capsule Naproxen [Naprosyn] 250 mg PO BID #14 tablet Forms: Patient Portal Access Time of Disposition: 16:33 Quality - Quality Measures Quality Measures: N/A - Blood Pressure Screening View Details: Yes Does Patient Have Any of the Following: No Blood Pressure Classification: Pre-Hypertensive BP Reading Systolic Measurement: 132 Diastolic Measurement: 89 Screening for High Blood Pressure: < Pre-Hypertensive BP, F/U Documented > [G8950] Pre-Hypertensive Follow-up Interventions: Referral to alternative/primary care provider.
== END 2019-07-12 16:39 | disposition home or self-care (01) ==
LOC: ER 15:30
DX: K04.7 Periapical abscess without sinus (principal); R50.81 Fever presenting with conditions classified elsewhere
CPT/HCPCS: 99284